=== PATIENT | female | born 1945 | race Caucasian/White ===

== ENCOUNTER 2022-02-01 12:55 | Emergency (ER) | payer OTHER ==
[~2022-02-01] VITALS: Ht 160 cm; Wt 66.7 kg
--- NOTE | 2022-02-01 13:15 | NUR ---
SENT TO ER BED 10. BIBHUSBAND FROM HOME SENT BY URGENT CARE DUE TO ABN LAB "HGB 2.0" PT ATTACHED TO MONITOR.IV ESTABLISHED L AC 18G. WARM BLANKET PROVIDED FOR COMFORT. DR ANTUNEZ AT BEDSIDE.
--- NOTE | 2022-02-01 13:48 | NUR ---
COVID TEST COLLECTED AND SENT
[2022-02-01] MEDS ORDERED: LOSA50TA39 PO (13:50)
[2022-02-01] MEDS ORDERED: PANT20TA17 PO (13:50)
[2022-02-01 13:57] LABS: BASOPHILS # (AUTO) 0.1 K/uL (0.0-0.2); BASOPHILS % (AUTO) 0.9 % (0.0-2.0); EOSINOPHILS % (AUTO) 1.5 % (0.0-6.0); HEMATOCRIT 37 % (33-45); HEMOGLOBIN 12.1 g/dL (11.5-14.8); LYMPHOCYTES # (AUTO) 1.9 K/uL (0.8-4.8); LYMPHOCYTES % (AUTO) 20.9 % (20.0-44.0); MEAN CORPUSCULAR HGB CONC 33 g/dl (31.0-36.0); MEAN CORPUSCULAR VOLUME 84 fL (82-100); MONOCYTES # (AUTO) 0.6 K/uL (0.1-1.30); NEUTROPHILS # (AUTO) 6.3 K/uL (1.8-8.9); NEUTROPHILS % (AUTO) 69.7 % (43.0-81.0); PLATELET COUNT (AUTO) 284 K/uL (150-450); RED BLOOD CELL COUNT(AUTO) 4.44 MIL/uL (4.0-5.2)
[2022-02-01 14:06] LABS: CALCIUM, SERUM 9.7 mg/dL (8.5-10.1); POTASSIUM 3.9 mmol/L (3.5-5.1)
[2022-02-01 14:39] VITALS: BP 126/75
--- NOTE | 2022-02-01 14:39 | NUR ---
The patient is alert and oriented x4. Denies pain. In room air and denies SOB. Respiration regular andunlabored. IV removed. Catheter intact and site benign. Pressure and 4x4 applied to site. No bleeding noted.Patient discharged to home in stable condition. Written and verbal after care instructions given. Patient verbalizes understanding of instruction.
== END 2022-02-01 14:41 | disposition home or self-care (01) ==
LOC: ER 13:00
DX: Z03.89 Encounter for observation for other suspected diseases and conditions ruled out (principal); C50.919 Malignant neoplasm of unspecified site of unspecified female breast; I10 Essential (primary) hypertension
CPT/HCPCS: 36415; 80048-TC; 85025-TC; 85730-TC; C9803

== ENCOUNTER 2024-09-21 12:54 | Emergency (ER) | payer OTHER ==
[~2024-09-21] VITALS: Ht 160 cm; Wt 68.0 kg
[~2024-09-21 12:54] MED LIST: LOSA50TA39 PO; PANT20TA17 PO
[2024-09-21] MEDS ORDERED: ONDANSETRON HCL/PF 4 MG/2 ML VIAL ONE (13:20)
[2024-09-21] MEDS: IV NS 0.9% 1,000 ML BAG IV ONE (13:44)
[2024-09-21] MEDS: ONDANSETRON HCL/PF 4 MG/2 ML VIAL IVP ONE (13:45)
[2024-09-21 13:58] LABS: BASOPHILS % (AUTO) 0.4 % (0.0-2.0); EOSINOPHILS % (AUTO) 0.1 % (0.0-6.0); HEMATOCRIT 38 % (33-45); HEMOGLOBIN 12.5 g/dL (11.5-14.8); LYMPHOCYTES # (AUTO) 1.1 K/uL (0.8-4.8); LYMPHOCYTES % (AUTO) 8.7 % (20.0-44.0); MEAN CORPUSCULAR HEMOGLOBIN 28 PG (26.0-33.0); MEAN CORPUSCULAR HGB CONC 33 g/dl (31.0-36.0); MEAN CORPUSCULAR VOLUME 86 fL (82-100); MONOCYTES # (AUTO) 0.5 K/uL (0.1-1.30); MONOCYTES % (AUTO) 3.8 % (2.0-12.0); NEUTROPHILS # (AUTO) 10.7 K/uL (1.8-8.9); PLATELET COUNT (AUTO) 220 K/uL (150-450); RED BLOOD CELL COUNT(AUTO) 4.48 MIL/uL (4.0-5.2); WHITE BLOOD COUNT (AUTO) 12.3 K/uL (4.3-11.0)
[2024-09-21] MEDS ORDERED: ONDA4TAB5 PO (14:22)
[2024-09-21 15:07] LABS: ALANINE AMINOTRANSFERASE 19 U/L (12-78); ALBUMIN 3.4 g/dL (3.4-5.0); ALKALINE PHOSPHATASE 99 U/L (46-116); ASPARTATE AMINOTRANSFERASE 16 U/L (15-37); BILIRUBIN,DIRECT 0.1 mg/dL (0.0-0.2); BILIRUBIN,TOTAL 0.4 mg/dL (0.2-1.0); CALCIUM, SERUM 9.3 mg/dL (8.5-10.1); CARBON DIOXIDE 22 mmol/L (21-32); CHLORIDE 107 mmol/L (98-107); CREATININE 1.6 mg/dL (0.6-1.3); GLUCOSE 114 mg/dL (74-106); LIPASE 41 U/L (16-77); POTASSIUM 4.7 mmol/L (3.5-5.1); SODIUM SERUM 141 mmol/L (136-145); TOTAL PROTEIN, SERUM 7.6 g/dL (6.4-8.2); UREA NITROGEN, BLOOD 26 mg/dL (7-18)
[2024-09-21] MEDS ORDERED: HYDR-4303 PO (15:13)
[2024-09-21] MEDS ORDERED: TAMS-12 PO (15:13)
[2024-09-21] MEDS ORDERED: IBUP-1955 PO (15:13)
[2024-09-21 15:26] LABS: APPEARANCE,URINE SLIGHTLY CLOUDY (CLEAR); BILIRUBIN,URINE NEGATIVE (NEGATIVE); BLOOD, URINE 2+ Ery/uL (NEGATIVE); COLOR,URINE YELLOW (YELLOW); KETONES,URINE TRACE mg/dL (NEGATIVE); LEUKOCYTE ESTERASE ,URINE NEGATIVE (NEGATIVE); NITRITE, URINE NEGATIVE (NEGATIVE); PH,URINE 5.5 (5.0-8.0); PROTEIN,URINE NEGATIVE (NEGATIVE); UGLUCOSE NEGATIVE (NEGATIVE); UROBILINOGEN,URINE 0.2 EU/dL (0.2)
[2024-09-21] MEDS ORDERED: KETOROLAC TROMETHAMINE 15 MG/ML VIAL ONE (15:37)
[2024-09-21 15:49] LABS: RBC,URINE 21-50 /HPF (0-2); WBC,URINE 0-2 /HPF (0-3)
[2024-09-21] MEDS: KETOROLAC TROMETHAMINE 15 MG/ML VIAL IV ONE (15:49)
[2024-09-21 15:50] LABS: ADD URINE CULTURE NO; BACTERIA,URINE None seen /HPF (None Seen); URIC ACID CRYSTALS,URINE Moderate /HPF (None Seen)
[2024-09-21 15:56] VITALS: BP 133/82; TEMP 98.6; O2SAT 94
== END 2024-09-21 15:58 | disposition home or self-care (01) ==
LOC: ER 13:30
DX: N13.2 Hydronephrosis with renal and ureteral calculous obstruction (principal); E11.9 Type 2 diabetes mellitus without complications; I10 Essential (primary) hypertension; Z85.3 Personal history of malignant neoplasm of breast; Z90.12 Acquired absence of left breast and nipple
CPT/HCPCS: 99285; 74176; 96374; 96361; 96375; 85025; 80048; 83690; 80076; 81001; 36415; J2405; J7030; J1885